=== PATIENT | female | born 1995 | race Caucasian/White ===

== ENCOUNTER 2019-08-18 20:37 | Emergency (ER) | payer BC, SELFPAY ==
[2019-08-18 20:57] VITALS: BP 150/100; PULSE 113; O2SAT 98
--- NOTE | 2019-08-18 21:07 | ED.GENADUL_ITS ---
Discharge Plan Disposition Patient Disposition: HOME Condition: Fair Discharge Details Chief Complaint: PsychEval Clinical Impression: Anxiety Primary Care Provider: Dalia Miranda ED Provider: Erica Huston Home Meds and New Rx's Prescriptions: Continued escitalopram oxalate [Lexapro] 20 mg tablet 20 mg PO DAILY RF: 0 Discharge Instructions Instructions: Anxiety (ED) Additional Instructions: Encourage hydration. Please continue with medications as prescribed. Please continue to be open and honest with your support team. Please contact mental health if your anxiety increases at all we develop thoughts of self-harm [phone]. They will be in contact with you tomorrow to check in. You may also texted the [place] helpline. If you develop suicidal ideation, thoughts of self-harm or other new/worsening symptoms please seek care urgently once again. Please keep your upcoming appointment with your counselor. Follow-up with primary care at the end of the week for reevaluation and to discuss her medications further. Referrals: Dalia Miranda, [employer] [Primary Care Provider] - Discharge Data Discharge Date/Time-TO BE ENTERED AT DEPARTURE: 08/18/19 22:55 Medical Decision Making Patient 23-year-old male, accompanied by his six sigma black trainer, with chief complaint of thoughts of self-harm. He reports that he has panic disorder and has been on citalopram since last October. Reports that this medication does seem to help quite a bit with controlling his panic attacks. However, over the past few weeks, his anxiety has been picking again he is began to have thoughts of self-harm. Reports I want to feel this bad on the outside as I do on the inside. Does not feel outwardly suicidal. No definitive plan on how to harm himself. States that these thoughts that he had been having earlier this evening has since rescinded and he is no longer feeling a threat to himself. He reports that he is never cut himself or tried to harm himself historically. He was hospitalized in October after having a multitude panic attacks. 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 No new social stressors. Resides with 2 roommates. His father, who is a great support person for the patient, his on his way here. Patient is forward thinking but does seem impulsive, shaky and agitated. I am concerned with impulse control wanting to set up a plan patient regarding his thoughts of self-harm. Will consult with him with services. Mental health evaluated the patient. He does not feel that the patient is an imminent threat to himself or others. I do agree with this evaluation. There is a plan for them to follow-up with him tomorrow. He has an appointment with a counselor next week. I gave the patient information on how to contact the [place] helpline as well as being able to contact [facility] should his symptoms come back. He was given strict return precautions. Seems to have a great support system with people who are close around him at this time and can monitor him for any unusual behavior. He will continue with the citalopram. Advised to follow-up with primary care for reevaluation in 1 week. All of his questions and concerns were addressed and he is in agreement with this plan. HPI General Mode of arrival: ambulatory . Date/Time Provider Initiated Documentation: 08/18/19 21:05 . Limitations to Documentation: no limitations . Information obtained by: patient, family (six sigma black trainer from soccer program) and RN notes reviewed . HPI Narrative: Patient is a 23-year-old male presenting today with chief complaint of increased anxiety and alleged thoughts of self- harm. He is currently denying any thoughts of self-harm or suicidal ideation. He is never tried to self-harm historically. However, he was texting his cross country and track and field coach prior to arrival and expressing thoughts of harming himself over the evening. He reports that he has been hospitalized for his anxiety historically but finds the citalopram works very well for him and that he has not had the anxiety issues he had had historically. States that this all seemed to escalate after recent break from school where he was by himself more frequently. He reports that he seems to thrive when around other people. He does live with 2 roommates. Has supportive family. States that he does talk frequently with his field hockey and lacrosse coach and his six sigma black trainer, hence her being here today. Patient is more concerned that these feelings will escalate which is what prompted him to seek care at this time. Seems to have good personal insight. Related Data Home Medications Medication Instructions Recorded Confirmed escitalopram oxalate 20 mg tablet 20 mg PO DAILY 08/15/19 08/18/19 Allergies Allergy/AdvReac Type Severity Reaction Status Date / Time No Known Allergies Allergy Unverified 08/30/15 18:48 General Stated Complaint: PsychEval MARLON: 2 Review of Systems Constitutional Constitutional: Reports as per HPI, Denies chills, Denies fatigue, Denies fever(s), Denies headache(s) and Denies weakness Eyes Eyes: Denies change in vision ENT Ears, Nose, Mouth, and Throat: Denies headache(s) Cardiovascular Cardiovascular: Reports as per HPI, Denies chest pain, Denies lightheadedness, Denies dyspnea and Denies dyspnea on exertion Respiratory Respiratory: Reports as per HPI, Denies cough, Denies dyspnea and Denies dyspnea on exertion Gastrointestinal Gastrointestinal: Reports as per HPI, Denies abdominal pain, Denies change in bowel habits, Denies nausea and Denies vomiting Musculoskeletal Musculoskeletal: Denies abnormal gait Integumentary/Breasts Skin/Breast: Reports as per HPI and Denies rash Neurologic Neurologic: Denies abnormal movements, Denies abnormal speech, Denies abnormal gait, Denies headache(s), Denies paresthesias and Denies weakness Psychiatric Psychiatric: Denies abnormal sleep pattern, Reports anxiety, Reports depression, Reports mood swings, Denies panic attacks (None recently), Denies visual hallucinations, Denies hallucinations, Denies homicidal ideation, Denies suicidal ideation and Reports other (Reports that he was having thoughts of self-harm but no plan. ) Endocrine Endocrine: Denies fatigue PFSH Medical History Anxiety (Chronic) Panic disorder without agoraphobia (Acute) Family History (Updated 08/13/19 @ 10:38 by Juanita Perez) Father Depression Social History Smoking/Tobacco Use Status: Never Alcohol Intake: former Drug use: Never Substance use type: does not use Details: No IV Drug Use Adopted: No Caregiver/Support person: No Foster care: No Household members: friend(s) Housing: apartment Do you need help understanding health information?: Never current occupation: Unemployed Sexually active: No Do you think of yourself as: straight/heterosexual Current gender identity: trans [id number] Do you feel safe at home: Yes Do you feel safe in your relationship?: Yes Additional Social history: pt states that he lives off campus and has had a hard time adjusting to college life Exam Const General: cooperative, healthy appearing, comfortable, no acute distress, well developed and well groomed Nutritional Appearance: average body habitus and well nourished Orientation: alert and awake Eyes General: appearance normal, both eyes and all related structures Resp Effort & Inspection: normal respiratory effort, able to speak in complete sentences and no respiratory distress Auscultation: clear to auscultation bilaterally, no rales, no rhonchi and no wheezes Cardio Rate: regular rate Rhythm: regular rhythm Heart Sounds: S1 normal and S2 normal Skin General skin exam: no rashes or lesions noted Trauma: no lacerations or abrasions Neuro General: alert and awake Cognition: normal cognition Speech: speech normal Gait: normal gait Course Vital Signs Vital signs: Vital Signs Pulse 113 H 08/18/19 20:57 Blood Pressure 150/100 H 08/18/19 20:57 Pulse Oximetry 98 08/18/19 20:57 Temperature Source Temporal Artery Scan 08/18/19 20:57 Pulse 113 H 08/18/19 20:57 Blood Pressure 150/100 H 08/18/19 20:57 Pulse Oximetry 98 08/18/19 20:57 Oxygen Delivery Method Room Air 08/18/19 20:57 Oxygen Flow Rate 0 08/18/19 20:57
[2019-08-18 22:39] VITALS: PULSE 98; RESP 20; O2SAT 96
--- NOTE | 2019-08-18 23:19 | PDOC.MHCN ---
Date of service: 08/18/19 Time of Service: 22:41 Mental Health Crisis Note Presenting Issue How did you arrive at the ED and why did you come: Patient arrives to [facility] ED with chief complaint of generalized thoughts of self-harm and escalating anxiety after sending several concerning texts to his trampoline team coach. He is accompanied by his [employer] [employer] athletics ultimate hoops trainer. Precipitating Factors Patient is a 23yo male that has a history of panic disorder, generalized anxiety, and agoraphobia and has received in-patient treatment for these conditions within the past year. He is currently attending [employer] and is residing in an apartment with two roomates. He reports sending several texts to his trampoline team coach earlier tonight which read as follows: I don't think I'm going to make it through the night. When questioned on the reasoning behind these texts, he advises that since returning to school from July he has been experiencing escalating stress and difficulty adapting to the scheduling and workload demands of the new semester. He reports experiencing generalized non-specific suicidal ideation when his stress levels become particularly pronounced and that his general coping mechanism is to be around other people. He denies intent or plan at time of assessment and does not report any prior attempts of self-harm. Disposition BEHAVIOR: Appropriate in all interactions. EYE CONTACT: Good MOOD: Euthymic AFFECT: Congruent to mood APPETITE: No reported issues SLEEP(trouble falling/staying asleep: No reported issues Plan Client will be discharged under his own accord after consulting with ED physician. The client advises that he believes he can feel safe tonight and that his roommates and father will provide some measure of supervision for the time being. He states that he will be attending counseling sessions on the in order to better address longstanding issues with anxiety and is amenable to a counseling referral through [facility]. Client was provided [facility] emergency contact information and was encouraged to contact as needed with any concerns or questions. Provisional Diagnosis 309.24 - Adjustment Disorders; (F43.22) - With anxiety
== END 2019-08-18 22:55 | disposition home or self-care (01) ==
PROVIDERS: Emergency Provider Physician Assistant; PCP Nurse Practitioner
DX: F41.9 Anxiety disorder, unspecified (principal)
CPT/HCPCS: 99284

== ENCOUNTER 2020-06-24 03:59 | Outpatient (CLI) | payer BC, SELFPAY ==
[2020-07-02 16:58] LABS: Testosterone, Free 13.1 ng/dL (0.06-1.08); Testosterone, Total 570 ng/dL (8-60)
== END 2020-06-24 04:19 ==
PROVIDERS: PCP Nurse Practitioner Adult Health; Visit Provider Physician Assistant
DX: Z02.5 Encounter for examination for participation in sport (principal); F64.0 Transsexualism
CPT/HCPCS: 36415; 84402; 84403